=== PATIENT | male | born 1965 | race Caucasian/White ===

== ENCOUNTER 2018-04-10 12:39 | Emergency (ER) | payer BC ==
--- NOTE | 2018-04-10 14:37 | RAD ---
INDICATION: Right fifth finger laceration. TECHNIQUE: 3 views of the right fifth finger were obtained. FINDINGS: There is mild diffuse soft tissue swelling. There is a small fracture fragment which is well-corticated involving the tuft of the distal phalanx consistent with an old ununited fracture. There is an old healed boxer's fracture of the fifth metacarpal. No acute fracture or radiopaque foreign body is seen. Joint spaces appear maintained. IMPRESSION: 1. NO EVIDENCE FOR ACUTE FRACTURE. 2. OLD UNUNITED FRACTURE OF THE TUFT OF THE DISTAL PHALANX AND OLD HEALED BOXER'S FRACTURE OF THE FIFTH METACARPAL.
[2018-04-10] MEDS ORDERED: Amoxicillin/Clavulanate TAB* 875 MG PO ONE (14:46)
[2018-04-10] MEDS ORDERED: Tetan/Diph/Pertus SYR(Tdap)* 0.5 ML SYR(BOOSTRIX) use SYR IM ONE (15:17)
--- NOTE | 2018-04-10 15:20 | ED ---
Progress - Progress Note Progress Note: Distal Rt pinky stellate lac over palmar aspect - 1cm (longest area) x 4mm ( irregular shape) Soaked in iodine and water solution, cleaned with alcohol wipes and irrigated with 100cc sterile water Digital nerve block w/ 1% lidocaine No deridement necessary No nerve, vessel or tendon observed Closed w/ 5-0 ethilon - #5 sutures Hemodynamically stable Dressed w/ triple anbx ointment, sterile gauze and wrap Pt tolerated well Discharge - Sign-Out/Discharge Documenting (check all that apply): Discharge/Admit/Transfer - Discharge Plan Condition: Stable Disposition: HOME Referrals: No Primary Care Phys,NOPCP [Primary Care Provider] - Additional Instructions: Keep Dressing clean and dry and in place for the next 48 hours. After that time , you may remove dressing, gently wash wound with soap and water, rinse well and pat dry with clean cloth. Reapply triple antibiotic ointment and clean gauze dressing. Continue this daily until sutures are removed. Call your PCP to schedule wound recheck and suture removal in 10-14 days. In the meantime, rest, ice, elevate and take ibuprofen with food as needed for pain. Avoiding lifting, squeezing, gripping, leaning on wound to prevent sutures from tearing. Avoid soaking. * If you develop redness, swelling, streaking, purulent drainage, fevers or chills, seek medical attention sooner or return to the emergency department. - Billing Disposition and Condition Condition: STABLE Disposition: Home
[2018-04-10 15:25] VITALS: BP 129/80
--- NOTE | 2018-04-10 17:30 | ED ---
José Miguel, AttebJoe forbes, scribed for Kolton Levin MD on 04/10/18 at 1424 . Laceration/Wound HPI - HPI Summary HPI Summary: Pt is a 52 y/o male presenting with a laceration located on his right pinky finger. He hit the finger with a crowbar at an angle, causing the laceration. The pt stated that "the skin was peeling off" but placed skin back over bone and wrapped it up in a towel [employer]. Pt states that he is not in any distress. He [place] a prior [place] on the same [place] [facility] [place] - History of Current Complaint Stated Complaint: RT FINGER INJURY Time Seen by Provider: 04/10/18 13:57 Hx Obtained From: Patient Mechanism of Injury: Sharp/Blunt Trauma - Hit finger with crowbar at angle causing laceration Onset/Duration: Sudden Onset, Still Present Timing: Constant Current Severity: None Pain Intensity: 0 Pain Scale Used: 0-10 Numeric - Allergy/Home Medications Allergies/Adverse Reactions: Allergies Allergy/AdvReac Type Severity Reaction Status Date / Time cephalexin [From Keflex] Allergy Hives Verified 04/10/18 12:53 morphine Allergy Swelling Verified 04/10/18 12:53 Of Face,Lips,& Throat PMH/Surg Hx/FS Hx/Imm Hx Respiratory History: Denies: Hx Asthma GI History: Reports: Other GI Disorders - History of hernias Infectious Disease History: No Infectious Disease History: Denies: Traveled Outside the [place] in Last 30 Days - Family History Known Family History: Positive: Cardiac Disease, Diabetes, Other - Breast CA - mother, Prostate CA - father - Social History Occupation: Employed Full-time Lives: With Family Alcohol Use: None Substance Use Type: Reports: Excessive Caffeine Smoking Status (MU): Heavy Every Day Tobacco Smoker Review of Systems Negative: Fever Positive: Other - laceration of R pinky finger All Other Systems Reviewed And Are Negative: Yes Physical Exam - Summary Physical Exam Summary: General: well-appearing, no pain distress Skin: warm, color reflects adequate perfusion, dry, 1 cm irregular laceration on R pinky finger Head: normal Eyes: EOMI, ADALBERTO ENT: normal Neck: supple, nontender Respiratory: CTA, breath sounds present Cardiovascular: RRR Abdomen: soft, nontender Bowel: present Musculoskeletal: normal, strength/ROM intact Neurological: sensory/motor intact, A&O x3 Psychological: affect/mood appropriate Triage Information Reviewed: Yes Vital Signs On Initial Exam: Initial Vitals Temp Pulse Resp BP Pulse Ox 98.2 F 89 16 116/85 95 04/10/18 12:50 04/10/18 12:50 04/10/18 12:50 04/10/18 12:50 04/10/18 12:50 Vital Signs Reviewed: Yes Diagnostics - Vital Signs Vital Signs Temp Pulse Resp BP Pulse Ox 04/10/18 12:50 98.2 F 89 16 116/85 95 - Laboratory Lab Statement: Any lab studies that have been ordered have been reviewed, and results considered in the medical decision making process. - Radiology Finger XR Xray Interpretation: Positive (See Comments) - IMPRESSION: NO EVIDENCE FOR ACUTE FRACTURE. OLD UNUNITED FRACTURE OF THE TUFT OF THE DISTAL PHALANX AND OLD HEALED BOXER'S FRACTURE OF THE FIFTH METACARPAL. Radiology Interpretation Completed By: Radiologist - IMPRESSION: NO EVIDENCE FOR ACUTE FRACTURE. OLD UNUNITED FRACTURE OF THE TUFT OF THE DISTAL PHALANX AND OLD HEALED BOXER'S FRACTURE OF THE FIFTH METACARPAL. Laceration Repair Course/Dx - Course Course Of Treatment: WOUND CLEANED AND SUTURED BY PA IN ED. F/U PMD; RETURN IF WORSE. - Clinical Impression Provider Diagnoses: Laceration of right little finger Discharge - Sign-Out/Discharge Documenting (check all that apply): Discharge/Admit/Transfer - Discharge Plan Condition: Stable Disposition: HOME Prescriptions: Amoxicillin/Clavulanate TAB* [Augmentin TAB 875*] 875 mg PO BID #19 tab Patient Education Materials: Laceration (ED) [place] [facility] [place]] Additional Instructions: Keep Dressing clean and dry and in place for the next 48 hours. After that time , you may remove dressing, gently wash wound with soap and water, rinse well and pat dry with clean cloth. Reapply triple antibiotic ointment and clean gauze dressing. Continue this daily until sutures are removed. Call your PCP to schedule wound recheck and suture removal in 10-14 days. In the meantime, rest, ice, elevate and take ibuprofen with food as needed for pain. Avoiding lifting, squeezing, gripping, leaning on wound to prevent sutures from tearing. Avoid soaking. * If you develop redness, swelling, streaking, purulent drainage, fevers or chills, seek medical attention sooner or return to the emergency department. - Billing Disposition and Condition Condition: STABLE Disposition: Home The documentation as recorded by the Gera farrell Michael accurately reflects the service I personally performed and the decisions made by me, Kolton Levin MD.
== END 2018-04-10 15:25 | disposition home or self-care (01) ==
LOC: ED 12:39
DX: S61.216A Laceration without foreign body of right little finger without damage to nail, initial encounter (principal); W22.8XXA Striking against or struck by other objects, initial encounter; Y92.9 Unspecified place or not applicable; Z88.8 Allergy status to other drugs, medicaments and biological substances; F17.210 Nicotine dependence, cigarettes, uncomplicated
CPT/HCPCS: 73140; 90471; 90715; 99282; A9270-GY